=== PATIENT | female | born 1985 | race Two or more races ===

== ENCOUNTER 2016-10-19 12:18 | Emergency (ER) | payer OTHER ==
[2016-10-19 12:32] VITALS: O2SAT 100
[2016-10-19 12:33] VITALS: BMI 20.7
--- NOTE | 2016-10-19 13:24 | ED PDOC ---
HPI: Female Pain Time Seen by Provider: 10/19/16 13:09 Chief Complaint (Nursing): Female Genitourinary Chief Complaint (Provider): Spotting History Per: Patient Additional Complaint(s): pt. is a 31 yo female, no PMH, presents into ER c/o vaginal spotting this am. States she had brown vaginal discharge. sent by her LADLE PULLER, Dr. Humphrey, for further evaluation. denies any abd. pain. states she is approx. 12 weeks . No vaginal bleeding or LOF. Past Medical History Reviewed: Nursing Documentation, Vital Signs Vital Signs: Last Vital Signs Temp 97.0 F L 10/19/16 12:41 Pulse 71 10/19/16 12:41 Resp 20 10/19/16 12:41 BP 109/73 10/19/16 12:41 Pulse Ox 100 10/19/16 12:41 - Medical History PMH: No Chronic Diseases - Family History Family History: States: Unknown Family Hx - Living Arrangements Living Arrangements: With Family - Social History Current smoker - smoking cessation education provided: No Alcohol: None Drugs: Denies - Allergies Allergies/Adverse Reactions: Allergies Allergy/AdvReac Type Severity Reaction Status Date / Time No Known Allergies Allergy Verified 10/19/16 12:40 Review of Systems ROS Statement: Except As Marked, All Systems Reviewed And Found Negative Genitourinary Female: Positive for: Vaginal Bleeding Physical Exam - Reviewed Nursing Documentation Reviewed: Yes Vital Signs Reviewed: Yes - Physical Exam Appears: Positive for: Well, Non-toxic, No Acute Distress Head Exam: Positive for: ATRAUMATIC, NORMAL INSPECTION, NORMOCEPHALIC Skin: Positive for: Normal Color, Warm, DRY Eye Exam: Positive for: EOMI, Normal appearance, PERRL ENT: Positive for: Normal ENT Inspection Neck: Positive for: Normal, Painless ROM Cardiovascular/Chest: Positive for: Regular Rate, Rhythm Respiratory: Positive for: CNT, Normal Breath Sounds Gastrointestinal/Abdominal: Positive for: Normal Exam, Bowel Sounds, Soft Back: Positive for: Normal Inspection Extremity: Positive for: Normal ROM Neurologic/Psych: Positive for: Alert, Oriented - Laboratory Results Result Diagrams: 10/19/16 14:12 - ECG O2 Sat by Pulse Oximetry: 100 Medical Decision Making Medical Decision Making: CBC and Beta resulted WNL. Results discussed with pt who demonstrated full understanding UA and Culture pending at this time IMPRESSION: Eleven weeks 5 days live intrauterine gestation. Gestation concordance cannot be determine in the absence of reliable LMP. Pt educated on results and demonstrated full understanding. Pt requesting to leave at this time, will follow up with Dr. Humphrey. Pt explained that she will be contacted with UC results if (+) return to ED with any concerns at any time Disposition - Clinical Impression Clinical Impression: Bleeding in early - Patient ED Disposition Is Patient to be Admitted: No - Disposition Disposition: Routine/Home Disposition Time: 16:09 Condition: STABLE Instructions: Threatened Miscarriage (ED) Forms: [employer] (Dutch)
[2016-10-19 14:29] LABS: BASO % 0.7 % (0.0-2.0); EOS # 0.1 K/uL (0.0-0.7); HEMATOCRIT 38.4 % (34.0-47.0); LYMPH # 1.7 K/uL (1.0-4.3); LYMPH % 24.9 % (20.0-40.0); MEAN CELL VOLUME 86.9 fl (81.0-99.0); MEAN CORPUSCULAR HEMOGLOBIN 29.4 pg (27.0-31.0); MEAN CORPUSCULAR HGB CONC 33.8 g/dL (33.0-37.0); MEAN PLATELET VOLUME 9.3 fl (7.2-11.7); MONO # 0.5 K/uL (0.0-0.8); MONO % 6.7 % (0.0-10.0); NEUT # 4.5 K/uL (1.8-7.0); NEUT % 65.7 % (50.0-75.0); RED CELL DISTRIBUTION WIDTH 13.3 % (11.5-14.5); WHITE BLOOD COUNT 6.9 K/uL (4.8-10.8)
--- NOTE | 2016-10-19 15:18 | US ---
PROCEDURE: First trimester ultrasound. HISTORY: 11.5 w, bleeding COMPARISON: None available. TECHNIQUE: Standard protocol for this study/examination. FINDINGS: LMP: Unknown. Prior examinations from the current : None. TECHNIQUE: Real-time 2D imaging, duplex and color Doppler. FINDINGS: Cardiac activity: Present Rate: 167 BPM Measurements: [place] rump length: 4.49 cm Gestational age based on CRL 11 weeks 2 days Gestational age based on gestational sac measurement 12 weeks Gestational age derived from LMP: Cannot be ascertained based in the absence of a reliable/ known LMP RHETT based on LMP: Cannot be ascertained based in the absence of a reliable/ known LMP RHETT based on biometry: 05/05/2017 Gestational concordance documented Yolk sac not identified Uterus: Unremarkable. No Cervical abnormalities: Negative examination for cervical dilatation or effacement. Closed cervix measures 4.1 cm Subchorionic hemorrhage: None ADNEXA: Right: Nonvisualized Left: 2 x 3 cm. Normal Doppler arterial waveform documented Fluid in the cul-de-sac: None UTERUS: 6.5 x 6.7 x 15.7 IMPRESSION: Eleven weeks 5 days live intrauterine gestation. Gestation concordance cannot be determine in the absence of reliable LMP.
[2016-10-19 16:16] VITALS: BP 122/68; PULSE 81; RESP 16; TEMP 97.9
[2016-10-19 16:58] LABS: RBC URINE 1 /hpf (0-3); URINE BACTERIA OCC (<OCC); URINE BILIRUBIN NEGATIVE (NEGATIVE); URINE BLOOD SMALL (NEGATIVE); URINE COLOR STRAW (YELLOW); URINE GLUCOSE (UA) NEG (Normal); URINE KETONE NEGATIVE (NEGATIVE); URINE LEUKOCYTE ESTERASE NEG Leu/uL (Negative); URINE PROTEIN NEGATIVE (NEGATIVE); URINE UROBILINOGEN 0.2-1.0 mg/dL (0.2-1.0); WBC URINE 2 /hpf (0-5)
== END 2016-10-19 16:14 | disposition home or self-care (01) ==
LOC: H.ER 12:18
DX: O20.0 Threatened abortion (principal)

== ENCOUNTER 2017-04-30 10:30 | Inpatient (IN) | payer OTHER ==
[2017-04-30 10:35] VITALS: BMI 25.0
[2017-04-30] MEDS ORDERED: Lactated Ringer's 1,000 ML IV ONE (12:00)
[2017-04-30] MEDS ORDERED: Lactated Ringer's 1,000 ML IV SCH (12:15)
--- NOTE | 2017-04-30 12:36 | OBADHP ---
Datetime: 04/30/2017 12:32 IP Chief Complaint Other: polyhydramnios; CTX pain Admit Comment, IP Provider: IUP at 39w Hx polyhydramnios c/o CTX on and off. No SROM; No VB; + FM PMH: Hypothyroidism - on Levothyroixine 75mcg PSH denies NKA PSoH denies smoking; ETOH; drugs POBGYNH: no STD; G1 IVF A: IUP at 39w Polyhydramnios Hypothyroidism Hx IVF PLAN: admit to L_D condition explained to pt and her ...they understood about IOL, medicatoins, pain managemen t, labor, delivrey and Pelvic Type - PN: Adequate Extremities - PN: Normal Abdomen - PN: Normal Back - PN: Normal Breast - PN: Normal Lungs - PN: Normal Heart - PN: Normal Thyroid - PN: Normal Neurologic - PN: Normal HEENT - PN: Normal General - PN: Normal Presentation-Admit: Vertex Membranes, Provider: Intact Contraction Comments Provider: occ Pool Provider: Negative IP Hx Assessment: The History has been Reviewed and is Current Vital Signs Provider: Reviewed; Within Normal Limits IP Chief Complaint: Uterine contractions NICHD Variability Prov Fetus A: Moderate 6-25bpm NICHD Accel Fetus A IP Provider: 15X15 FHR Category Provider Fetus A: Category I NICHD Decel Fetus A IP Provider: None Dilatation, Provider: FT Genitourinary Exam: Normal DTRs - PN: Normal EGA AdmitDate IP: 39.1 IP Adm Impression: Term, intrauterine ; No Active Labor; Intact Membranes IP Admit Plan: Admit to unit; Initiate labor induction protocol Datetime: 04/30/2017 11:55 FHR - Baseline A Provider: 140 Effacement, Provider: 0 Station, Provider: [facility]
[2017-04-30 12:38] LABS: BASO % 0.3 % (0.0-2.0); EOS # 0.1 K/uL (0.0-0.7); EOS % 1.2 % (0.0-4.0); HEMATOCRIT 38.9 % (34.0-47.0); LYMPH # 2.3 K/uL (1.0-4.3); LYMPH % 22.1 % (20.0-40.0); MEAN CELL VOLUME 90.4 fl (81.0-99.0); MEAN CORPUSCULAR HEMOGLOBIN 29.5 pg (27.0-31.0); MEAN CORPUSCULAR HGB CONC 32.7 g/dL (33.0-37.0); MEAN PLATELET VOLUME 10.3 fl (7.2-11.7); MONO # 0.8 K/uL (0.0-0.8); MONO % 7.2 % (0.0-10.0); NEUT # 7.3 K/uL (1.8-7.0); NEUT % 69.2 % (50.0-75.0); RED CELL DISTRIBUTION WIDTH 14.2 % (11.5-14.5)
[2017-04-30 12:50] LABS: WHITE BLOOD COUNT 10.5 K/uL (4.8-10.8)
--- NOTE | 2017-04-30 15:29 | OBPN ---
Datetime: 04/30/2017 13:25 IP Progress Note Comment: Cervidil placed intravaginally Datetime: 04/30/2017 12:32 Pool Provider: Negative Membranes, Provider: Intact Contraction Comments Provider: occ Presentation-Admit: Vertex Vital Signs Provider: Reviewed; Within Normal Limits NICHD Accel Fetus A IP Provider: 15X15 FHR Category Provider Fetus A: Category I NICHD Variability Prov Fetus A: Moderate 6-25bpm Dilatation, Provider: FT NICHD Decel Fetus A IP Provider: None Datetime: 04/30/2017 11:55 FHR - Baseline A Provider: 140 Effacement, Provider: 0 Station, Provider: high
--- NOTE | 2017-05-01 16:26 | OBPN ---
Datetime: 05/01/2017 16:00 IP Progress Impression: Reassuring heart rate; Reactive non-stress test IP Informed Consent Obtain: Vaginal Delivery; Risks, Benefits and Alternatives Discussed IP Progress Plan: Continue present management; Induction; Cervical Ripening Pool Provider: Negative Membranes, Provider: Intact IP Progress Note Comment: She was given Cervidl which was removed. Two doses of Cytotec 50mcg po were given. After discuss ion, third and fourth dose were given intravaginally (by me)...no cervical change. Continue IOL Dilatation, Provider: SILVANO
[2017-05-01] MEDS ORDERED: Oxytocin 30 UNITS in Sodium Chloride 0.9% 500 ML IV ONE (23:07)
[2017-05-02] MEDS: Lactated Ringer's 1,000 ML IV SCH ×5 (03:35→22:00)
[2017-05-02] MEDS ORDERED: Fentanyl/Bupivacaine HCl 250 ML EPI ONE (06:32)
[2017-05-02] MEDS ORDERED: ceFAZolin IV 2 gm in Dextrose 2 GM/50 ML BAG IVPB ONE ×2 (17:37→17:45)
[2017-05-02] MEDS ORDERED: ceFAZolin IV 1 gm in Dextrose 1 GM/50 ML BAG IVPB STA (17:37)
--- NOTE | 2017-05-02 17:51 | OBPN ---
Datetime: 05/02/2017 17:47 IP Progress Impression: Arrest of dilatation/descent IP Informed Consent Obtain: Section Delivery; Risks, Benefits and Alternatives Discussed IP Procedures: Sterile Vag Exam IP Progress Plan: Deliver- Section Contraction Comments Provider: q3-4min FHR - Baseline A Provider: 140s IP Progress Note Comment: Pt with no cervical change in approx 6.5 hours. Discussed options with renee alonso. Recommended C/S delivery due to arrest of dilation. Pt agrees with plan. Discussed the R/B/ A of C/S and surgery with patient and all patient questions answered. Anesthesia notified Vital Signs Provider: Reviewed; Within Normal Limits NICHD Accel Fetus A IP Provider: 15X15 FHR Category Provider Fetus A: Category I NICHD Variability Prov Fetus A: Moderate 6-25bpm Dilatation, Provider: 7-8 Effacement, Provider: 100 Station, Provider: 0 NICHD Decel Fetus A IP Provider: None
[2017-05-02] MEDS ORDERED: Lidocaine 2% PF (10 ml) Amp ONE ×2 (18:01→18:05)
[2017-05-02] MEDS ORDERED: Phenylephrine 10 mg/ml Inj ONE (18:12)
[2017-05-02] MEDS ORDERED: Morphine 5 mg/10 ml preservative-free Inj(Duramorph) ONE (18:41)
[2017-05-02] MEDS ORDERED: Oxycodone/Acetaminophen 5/325 mg Tab PO PRN ×3 (18:59→21:09)
[2017-05-02] MEDS ORDERED: Oxytocin 30 UNITS in Sodium Chloride 0.9% 500 ML IV SCH (19:00)
[2017-05-02] MEDS ORDERED: Morphine 4 MG/ML VIAL IV PRN ×2 (19:10→21:09)
--- NOTE | 2017-05-02 19:13 | OBDS ---
DELIVERY PERSONNEL Delivery Doctor: Lucho Boyd MD Activity Therapist: Bonnie Gray RN Anesthesiologist: June Benjamin MD Resident: Dr. Baldwin MATERNAL INFORMATION Delivery Anesthesia: Epidural Medications in Delivery: Pitocin 30u/500mL of NS Estimated Blood Loss (ml): 800 Placenta Cultured: No Maternal Complications: None Provider Comments: Primary low flap transverse uterine section via Pfannenstiel incision. Delivered viable female with Apgars of 9 and 9 at one and 5 minutes respectively. Placenta delivered man ually. Estimated blood loss 800 mL Fluids 1900 mL lactated Ringer's Urine output 100 mL No complications Patient tolerated procedure well. LABOR SUMMARY EDC: 05/06/2017 00:00 No. Babies in Womb: 1 Attempted: No Labor Anesthesia: Epidural LABOR INFORMATION Reason for Induction: Polyhydramnios Onset of Labor: 05/02/2017 07:00 Cervical Ripening Agents: Cervidil Oxytocin: Augmentation Group B Beta Strep: Negative Antibiotics # of Doses: 1 Antibiotics Time of Last Dose: [id number] at 17:51 Steroids Given: None Reason Steroids Not Administered: Not Applicable MEMBRANES Membranes Rupture Method: Artificial Rupture of Membranes: 05/02/2017 11:08 Length of Rupture (hrs): 7.13 Amniotic Fluid Color: Clear Amniotic Fluid Amount: Moderate Amniotic Fluid Odor: Normal STAGES OF LABOR Stage 3 hrs: 0 Stage 3 min: 1 Total Time in Labor hrs: 11 Total Time in Labor min: 17 CSECTION DELIVERY Primary Indication: Secondary Arrest of Dilatation CSection Urgency: Non Elective CSection Incidence: Primary Labor: Labor Elective: Nonelective CSection Incision: Lower Uterine Transverse Uterine Closure: Double-layer closure BABY A INFORMATION Delivery Date/Time: 05/02/2017 18:16 Method of Delivery: Born in Route : No : N/A Forceps: N/A Vacuum Extraction: N/A Shoulder Dystocia : No SHOULDER DYSTOCIA BABY A Delivery Date/Time: 05/02/2017 18:16 PRESENTATION/POSITION BABY A Presentation: Cephalic Cephalic Presentation: Vertex Breech Presentation: N/A PLACENTA INFORMATION BABY A Placenta Delivery Time : 05/02/2017 18:17 Placenta Method of Delivery: Spontaneous Placenta Status: Delivered SCORES BABY A Heart Rate 1 min: >100 bpm Resp Effort 1 min: Good Cry Reflex Irritability 1 min: Cough or Sneeze or Pulls Away Muscle Tone 1 min: Active Motion Color 1 min: Body [place], Extremities Blue Resuscitation Effort 1 min: Tactile Stimulation SCORE 1 MIN: 9 Heart Rate 5 min: >100 bpm Resp Effort 5 min: Good Cry Reflex Irritability 5 min: Cough or Sneeze or Pulls Away Muscle Tone 5 min: Active Motion Color 5 min: Body [place], Extremities Blue Resuscitation Effort 5 min: Tactile Stimulation SCORE 5 MIN: 9 INFANT INFORMATION BABY A Gestational Age at Delivery: 39.3 Gestational Status: Term Infant Outcome : Liveborn Condition : Stable Infant Sex: Female IDENTIFICATION/MEDS BABY A ID Band Number: [id number] ID Band Location: Left Leg; Left Arm WEIGHT/LENGTH BABY A Birthweight (gms): 3400 Infant Weight (lb): 7 Infant Weight (oz): 8 CORD INFORMATION BABY A No. Cord Vessels: 3 Nuchal Cord : N/A Cord Blood Taken: N/A Infant Suction: None ASSESSMENT BABY A Infant Complications: Polyhydramnios Physical Findings at Delivery: Within Normal Limits Respirations: Appears Normal Biomedical Service Engineer/ALS Called : No Care By: Dwain Yanes Transferred To: Remains with Mother
--- NOTE | 2017-05-03 02:16 | OP ---
PROCEDURE DATE: 05/02/2017 PREOPERATIVE DIAGNOSIS: Arrest of dilatation in active labor. POSTOPERATIVE DIAGNOSIS: Arrest of dilatation in active labor. PROCEDURE: Primary low-flap transverse section via Pfannenstiel incision. OPERATIVE FINDINGS: Viable female with Apgars of 9 and 9 at 1 and 5 minutes respectively, normal uterus, normal tubes and ovaries bilaterally. ESTIMATED BLOOD LOSS: 800 mL. FLUIDS: 1900 mL lactated Ringer's. URINE OUTPUT: 100 mL of clear urine at the end of the procedure. SURGEON: Eliu Boyd MD. DEALER CARD ROOM: Dr. Baldwin ANESTHESIOLOGIST: Fahad Benjamin MD ANESTHESIA: Epidural. COMPLICATIONS: None. DESCRIPTION OF PROCEDURE: The patient was taken to the operating room where epidural anesthesia was found to be adequate. The patient was prepped and draped in normal sterile fashion in the dorsal supine position with a leftward tilt. A Pfannenstiel skin incision was made with a scalpel. This was carried down through to the underlying layer of fascia with scalpel. Midline defect was made in the fascial layer with scalpel. The fascial incision was then extended bilaterally sharply with curved Valentin scissors. The fascial layer was from the underlying rectus muscles both bluntly and sharply with curved Valentin scissors. The rectus muscles were at the midline. The peritoneum was then identified, tented up with Lilly clamps x2, entered sharply with Metzenbaum scissors. This peritoneal incision was then extended superiorly and inferiorly with good visualization of the urinary bladder. Bladder blade was inserted into the abdomen. The vesicouterine peritoneum was then identified, tented up with Lilly clamps x2, entered sharply with Metzenbaum scissors. This peritoneal incision was then extended bilaterally sharply with Metzenbaum scissors. The bladder flap was created digitally. The [place] retractors were placed over the urinary bladder. The uterus was incised with a scalpel. The uterine incision was extended bilaterally bluntly. The 's head was delivered atraumatically. Nose and mouth were suctioned with bulb suction. The remainder of the infant was delivered without complication. The cord was clamped and cut. The was handed off to waiting pediatricians. Cord blood was collected. The placenta was removed manually. The uterus was cleared of all clots and debris. The uterine incision was repaired with 0-Vicryl in a running, locked fashion. Second layer of the same suture was used to imbricate the first and to obtain excellent hemostasis. Reinspection of the uterine incision proved excellent hemostasis. The abdomen and pelvis were irrigated with copious amounts of warm normal saline. Reinspection of the uterine incision proved excellent hemostasis. All instruments were removed from the patient. The peritoneal layer was closed with a running stitch of 2-0 chromic. The rectus muscles were reapproximated at the midline with a running stitch of 2-0 chromic. The fascial layer was closed with a running stitch of 0 Vicryl. Subcutaneous tissue was closed with a running stitch of 3-0 plain. The skin was closed with a subcutaneous stitch of 3-0 Vicryl. The patient tolerated the procedure well. All sponge, lap count, and needle counts were correct x2. The patient was given 2 g of Ancef just prior to the beginning of the procedure. There were no complications. The patient was taken to the recovery room in awake and stable condition. Eliu Boyd MD
[2017-05-03 06:26] LABS: HEMATOCRIT 29.3 % (34.0-47.0); MEAN CELL VOLUME 89.4 fl (81.0-99.0); MEAN CORPUSCULAR HEMOGLOBIN 29.5 pg (27.0-31.0); RED CELL DISTRIBUTION WIDTH 14.3 % (11.5-14.5); WHITE BLOOD COUNT 16.4 K/uL (4.8-10.8)
[2017-05-03] MEDS: Levothyroxine 75 MCG TAB PO SCH (07:36)
[2017-05-03] MEDS: Lactated Ringer's 1,000 ML IV SCH (07:36)
[2017-05-03] MEDS: Oxycodone/Acetaminophen 5/325 mg Tab PO PRN ×3 (10:14→21:03)
--- NOTE | 2017-05-03 12:51 | OBPPN ---
Datetime: 05/03/2017 12:48 PP Pain Prov: Within normal limits PP Nausea Prov: Denies PP Flatus Prov: Yes PP Breasts Prov: Normal PP Heart Prov: Normal PP Lungs Prov: Normal PP Abdomen/Uterus Prov: Normal PP Lochia Prov: Normal PP Vulva/Perineum Prov: Normal PP CVA Tenderness Prov: Normal PP Extremities Prov: Normal PP Comments Phys Exam Prov: Fundus firm under umbilicus Incision clean/dry/intact PP Impression Prov: Normal progression PP Plan Prov: Continue present management PP Progress Note Prov: Patient denies CP, no SOB, no N/V, tolerating PO diet, ambulating/voiding wel l, mild lochia, abdominal pain tolerable with meds, +flatus A/P POD #1 1. Reg diet 2. Percocet/Motrin prn pain 3. Encourage ambulation/ 4. Colace prn constipation IP PP Procedures: None Vital Signs Provider PP: Reviewed; Within Normal Limits
[2017-05-04] MEDS: Oxycodone/Acetaminophen 5/325 mg Tab PO PRN ×4 (04:20→23:48)
[2017-05-04] MEDS: Levothyroxine 75 MCG TAB PO SCH ×3 (06:19→11:08)
--- NOTE | 2017-05-04 16:58 | OBPPN ---
Datetime: 05/04/2017 16:55 PP Pain Prov: Within normal limits PP Nausea Prov: Denies PP Flatus Prov: Yes PP BM Prov: No PP Breasts Prov: Normal PP Heart Prov: Normal PP Lungs Prov: Normal PP Abdomen/Uterus Prov: Normal PP Lochia Prov: Normal PP Vulva/Perineum Prov: Normal PP CVA Tenderness Prov: Normal PP Extremities Prov: Normal PP C/S Incision Prov: Normal PP Progress Prov: Normal PP Impression Prov: Normal progression PP Plan Prov: Continue present management PP Progress Note Prov: POD 2 C/S for failure to progress PLAN: continue postop care anticiapte discharge tmrw follow up in office in 1-2w Vital Signs Provider PP: Reviewed; Within Normal Limits
[2017-05-05] MEDS: Levothyroxine 75 MCG TAB PO SCH (05:46)
[2017-05-05] MEDS: Oxycodone/Acetaminophen 5/325 mg Tab PO PRN ×2 (05:47→11:00)
--- NOTE | 2017-05-05 09:40 | OBPPN ---
Datetime: 05/05/2017 09:38 PP Pain Prov: Within normal limits PP Nausea Prov: Denies PP Flatus Prov: Yes PP BM Prov: Yes PP Breasts Prov: Normal PP Heart Prov: Normal PP Lungs Prov: Normal PP Abdomen/Uterus Prov: Normal PP Lochia Prov: Normal PP Vulva/Perineum Prov: Normal PP CVA Tenderness Prov: Normal PP Extremities Prov: Normal PP C/S Incision Prov: Normal PP Progress Prov: Normal PP Impression Prov: Normal progression PP Plan Prov: Discharge PP Progress Note Prov: Post Op day 3 Anemia H/H 03/05 : asymptomatic PLAN discharge hme and follow up in 1-2w Vital Signs Provider PP: Reviewed; Within Normal Limits
--- NOTE | 2017-05-05 09:42 | OBDCSUM ---
Datetime: 05/05/2017 09:39 Discharged to, Provider: Home Follow up at, Provider: [facility] Disch Instr Activity: Normal activity Disch Instr Diet: Regular Discharge Instructions, Provider: Routine instructions given Discharge Diagnosis, Provider: Term Delivered Follow up in weeks, Provider: 1-2w Disch Referrals: None Contraception discussed, Prov: Yes Disch Activity Restrictions: No lifting; No sexual activity; Nothing in vagina - [place], tampon s, douche Discharge Diagnosis Prov Other: C/S for failure to dilate
[2017-05-05 18:10] VITALS: BP 106/67; PULSE 69; RESP 18; TEMP 99.3; O2SAT 100
== END 2017-05-05 13:35 | disposition home or self-care (01) | DRG 766 ==
LOC: H.EROB2 10:30 → H.L&D 12:06 → H.OB/GYN 05-02 20:51
PROVIDERS: ADMIT Obstetrics & Gynecology; ATTEND Obstetrics & Gynecology
PROC: 4A1HXCZ Monitoring of Products of Conception, Cardiac Rate, External Approach (ICD-10-PCS; 2017-04-30)
PROC: 10D00Z1 Extraction of Products of Conception, Low, Open Approach (ICD-10-PCS; principal; 2017-05-02)
DX: O40.3XX0 Polyhydramnios, third trimester, not applicable or unspecified (principal); D64.9 Anemia, unspecified; Z37.0 Single live birth; O99.284 Endocrine, nutritional and metabolic diseases complicating childbirth; E03.9 Hypothyroidism, unspecified; O99.02 Anemia complicating childbirth; Z3A.39 39 weeks gestation of pregnancy; O62.1 Secondary uterine inertia; O62.0 Primary inadequate contractions